=== PATIENT | female | born 1995 ===

== ENCOUNTER 2017-03-17 11:50 | Emergency (ER) | payer BC ==
[2017-03-17 12:26] VITALS: BP 112/62; PULSE 97; RESP 18; TEMP 98.6
--- NOTE | 2017-03-17 12:47 | ED ---
General Adult HPI - General Chief complaint: ENT Stated complaint: cough, fever Time Seen by Provider: 03/17/17 12:29 Source: patient, RN notes reviewed Mode of arrival: ambulatory Limitations: language barrier - History of Present Illness Initial comments: 21-year-old female presents for cough cold runny nose like symptoms. She's been started to get sick for the last day or so. Child. She denies any fever. There's been no nausea vomiting changes in eating or drinking. They were concerned due to the continued starting to feel bad with his history of ear infections so they thought that they should be seen. There is been no other symptoms in the patient. No significant health history.Patient denies any recent fever, chills, shortness of breath, chest pain, back pain, abdominal pain , nausea vomiting, numbness or tingling, dysuria or hematuria, constipation or diarrhea, headaches or visual changes, or any other current symptoms. - Related Data Allergies Allergy/AdvReac Type Severity Reaction Status Date / Time No Known Allergies Allergy Verified 03/17/17 12:25 Review of Systems ROS Statement: Those systems with pertinent positive or pertinent negative responses have been documented in the HPI. ROS Other: All systems not noted in ROS Statement are negative. Past Medical History Past Medical History: No Reported History History of Any Multi-Drug Resistant Organisms: None Reported Past Surgical History: No Surgical Hx Reported Past Psychological History: No Psychological Hx Reported Smoking Status: Never smoker Past Alcohol Use History: None Reported Past Drug Use History: None Reported General Exam - General Exam Comments Initial Comments: General exam: Alert, active, comfortable in no apparent distress Head: Normocephalic Eyes: Normal reaction of pupils, equal size, normal range of extraocular motion Ears: normal external ear canals, pink tympanic membranes with normal cone of light Nose: clear with pink turbinates Throat: no erythema or exudates with normal sized tonsils Neck: no masses, no nuchal rigidity Chest: no chest wall deformity Lungs: equal air entry with no crackles or wheeze CVS: S1 and S2 normal with no audible mumurs, regular rhythm Abdomen: no hepatosplenomegaly, normal bowel sounds, no guarding or rigidity Spine: no scoliosis or deformity Skin: no rashes Neurological: No focal deficits, tone is normal in all 4 extremities Limitations: language barrier Course Vital Signs 03/17/17 12:23 Temperature 98.6 F Pulse Rate 97 Respiratory 18 Rate Blood Pressure 112/62 O2 Sat by Pulse 99 Oximetry Medical Decision Making - Medical Decision Making General exam: Alert, active, comfortable in no apparent distress Head: Normocephalic Eyes: Normal reaction of pupils, equal size, normal range of extraocular motion Ears: normal external ear canals, pink tympanic membranes with normal cone of light Nose: clear with pink turbinates Throat: no erythema or exudates with normal sized tonsils Neck: no masses, no nuchal rigidity Chest: no chest wall deformity Lungs: equal air entry with no crackles or wheeze CVS: S1 and S2 normal with no audible mumurs, regular rhythm Spine: no scoliosis or deformity Skin: no rashes Neurological: No focal deficits, tone is normal in all 4 extremities Disposition Clinical Impression: Upper respiratory infection Disposition: HOME SELF-CARE Condition: Stable Instructions: Upper Respiratory Infection (ED) Additional Instructions: Please use medication as discussed. Please follow up with family doctor if symptoms have not improved over the next two days. Please return to the emergency room if your symptoms increase or worsen or for any other concerns. Referrals: Ashleigh Rivero MD [STAFF PHYSICIAN] - 1-2 days Time of Disposition: 12:47
== END 2017-03-17 12:49 | disposition home or self-care (01) ==
LOC: EC 11:50
DX: J06.9 Acute upper respiratory infection, unspecified (principal)
CPT/HCPCS: 99283

== ENCOUNTER 2017-09-16 23:30 | Emergency (ER) | payer BC, OTHER ==
[2017-09-16 23:52] VITALS: RESP 18
[2017-09-17] MEDS ORDERED: SODIUM CHLORIDE 0.9% 1,000 ML IV STA (00:23)
--- NOTE | 2017-09-17 00:26 | ED ---
Syncope HPI - General Chief Complaint: Syncope Stated Complaint: syncope, 17 weeks preg Time Seen by Provider: 09/17/17 00:19 Source: patient, family, RN notes reviewed Mode of arrival: ambulatory Limitations: language barrier - History of Present Illness Initial Comments: This is a 22-year-old female who presents to the emergency department with chief complaint of syncope. Patient is currently 17 weeks . Patient knows very little Maltese so [id number] translates. She states that at approximately 11 PM this evening patient passed out. She states that she lost consciousness for a couple of seconds. At this time, patient reports feeling lightheaded. She states that she has never passed out before. Denies any recent fevers, chills, chest pain or shortness of breath, abdominal pain, nausea or vomiting, vaginal bleeding, headache or vision changes. - Related Data Allergies Allergy/AdvReac Type Severity Reaction Status Date / Time No Known Allergies Allergy Verified 09/16/17 23:52 Review of Systems ROS Statement: Those systems with pertinent positive or pertinent negative responses have been documented in the HPI. ROS Other: All systems not noted in ROS Statement are negative. Past Medical History Past Medical History: No Reported History History of Any Multi-Drug Resistant Organisms: None Reported Past Surgical History: No Surgical Hx Reported Past Psychological History: No Psychological Hx Reported Smoking Status: Never smoker Past Alcohol Use History: None Reported Past Drug Use History: None Reported General Exam - General Exam Comments Initial Comments: General: Awake and alert, well-developed; in no apparent distress. HEENT: Head atraumatic, normocephalic. Pupils are equal, round and reactive to light. Extraocular movements intact. Oropharynx moist without erythema or exudate. Neck: Supple. Normal ROM. Cardiovascular: Regular rate and rhythm. No murmurs, rubs or gallops. Chest symmetrical. Respiratory: Lungs clear to auscultation bilaterally. No wheezes, rales or rhonchi. Normal respiratory effort with no use of accessory muscles. Abdomen: Soft, non-tender, non-distended. No rigidity, rebound or guarding. Musculoskeletal: Normal ROM, no tenderness bilateral upper and lower extremities. Ambulating normally. Skin: [place], warm and dry without rashes or lesions. Neurological: Alert and oriented x3. CN II-XII grossly intact. No focal neuro deficits. Limitations: language barrier Course Vital Signs 07/11/2609/17/17 09/17/17 23:49 02:30 02:52 Temperature 98.3 F Pulse Rate 83 84 Respiratory 18 18 Rate Blood Pressure 92/56 89/53 98/53 O2 Sat by Pulse 99 98 Oximetry 09/17/17 09/17/17 09/17/17 03:35 03:39 03:43 Temperature 97 F L Pulse Rate 88 75 Respiratory 18 18 Rate Blood Pressure 95/59 98/57 O2 Sat by Pulse 98 100 Oximetry - Reevaluation(s) Reevaluation #1: 09/17/17 03:03 Patient resting comfortably at this time. Lab results were discussed with patient and family members at bedside who did provide translation. Patient continues to have low blood pressure. Awaiting second liter bolus at this time. EKG Findings - EKG Comments: EKG Findings:: 1:08:06. Normal sinus rhythm. Ventricular rate 75 bpm, NC interval 114, QRS duration 84, QT/QTC 376/419. No evidence of ST segment elevation or depression. Medical Decision Making - Medical Decision Making This is a 22-year-old female, currently 17 weeks , who presents to the emergency department with chief complaint of syncopal episode. Prior to arrival , it was reported the patient passed out for a couple of seconds. On physical examination, patient appears well. EKG was obtained which revealed normal sinus rhythm. CBC, CMP and UA were unremarkable. Ultrasound was obtained which revealed a viable intrauterine with no complicating processes. The only remote abnormality was a slightly lower blood pressure. Patient was given 2 L of normal saline while in the emergency department. She states that her symptoms have improved. Vital signs are stable and patient is in no acute distress. She will be discharged home at this time. Recommended following up with her primary care provider as well as her PERSONNEL WORKER. Patient is in agreement. All questions answered. Case was discussed with attending physician, Dr. Olivarez. - Lab Data Result diagrams: 09/17/17 00:39 09/17/17 00:39 Lab Results 09/17/17 09/17/17 09/17/17 Range/Units 00:39 00:39 00:39 WBC 9.0 (3.8-10.6) k/uL RBC 4.02 (3.80-5.40) m/uL Hgb 12.8 (11.4-16.0) gm/dL Hct 35.8 (34.0-46.0) % MCV 89.1 (80.0-100.0) fL MCH 31.8 (25.0-35.0) pg MCHC 35.7 (31.0-37.0) g/dL RDW 13.6 (11.5-15.5) % Plt Count 161 (150-450) k/uL Neutrophils % 78 % Lymphocytes % 16 % Monocytes % 4 % Eosinophils % 2 % Basophils % 0 % Neutrophils # 6.9 (1.3-7.7) k/uL Lymphocytes # 1.4 (1.0-4.8) k/uL Monocytes # 0.3 (0-1.0) k/uL Eosinophils # 0.2 (0-0.7) k/uL Basophils # 0.0 (0-0.2) k/uL PT 9.8 (9.0-12.0) sec INR 1.0 (<1.2) APTT 21.2 L (22.0-30.0) sec Sodium 136 L (137-145) mmol/L Potassium 3.7 (3.5-5.1) mmol/L Chloride 104 (98-107) mmol/L Carbon Dioxide 23 (22-30) mmol/L Anion Gap 9 mmol/L BUN 9 (7-17) mg/dL Creatinine 0.40 L (0.52-1.04) mg/dL Est GFR (CKD-EPI)AfAm >90 (>60 ml/min/1.73 sqM) Est GFR (CKD-EPI)NonAf >90 (>60 ml/min/1.73 sqM) Glucose 94 (74-99) mg/dL Calcium 8.7 (8.4-10.2) mg/dL Total Bilirubin 1.1 (0.2-1.3) mg/dL AST 21 (14-36) U/L ALT 24 (9-52) U/L Alkaline Phosphatase 35 L (38-126) U/L Total Protein 6.0 L (6.3-8.2) g/dL Albumin 3.4 L (3.5-5.0) g/dL Urine Color Urine Appearance (Clear) Urine pH (5.0-8.0) Ur Specific [place] (1.001-1.035) Urine Protein (Negative) Urine Glucose (UA) (Negative) Urine Ketones (Negative) Urine Blood (Negative) Urine Nitrite (Negative) Urine Bilirubin (Negative) Urine Urobilinogen (<2.0) mg/dL Ur Leukocyte Esterase (Negative) 09/17/17 Range/Units 01:50 WBC (3.8-10.6) k/uL RBC (3.80-5.40) m/uL Hgb (11.4-16.0) gm/dL Hct (34.0-46.0) % MCV (80.0-100.0) fL MCH (25.0-35.0) pg MCHC (31.0-37.0) g/dL RDW (11.5-15.5) % Plt Count (150-450) k/uL Neutrophils % % Lymphocytes % % Monocytes % % Eosinophils % % Basophils % % Neutrophils # (1.3-7.7) k/uL Lymphocytes # (1.0-4.8) k/uL Monocytes # (0-1.0) k/uL Eosinophils # (0-0.7) k/uL Basophils # (0-0.2) k/uL PT (9.0-12.0) sec INR (<1.2) APTT (22.0-30.0) sec Sodium (137-145) mmol/L Potassium (3.5-5.1) mmol/L Chloride (98-107) mmol/L Carbon Dioxide (22-30) mmol/L Anion Gap mmol/L BUN (7-17) mg/dL Creatinine (0.52-1.04) mg/dL Est GFR (CKD-EPI)AfAm (>60 ml/min/1.73 sqM) Est GFR (CKD-EPI)NonAf (>60 ml/min/1.73 sqM) Glucose (74-99) mg/dL Calcium (8.4-10.2) mg/dL Total Bilirubin (0.2-1.3) mg/dL AST (14-36) U/L ALT (9-52) U/L Alkaline Phosphatase (38-126) U/L Total Protein (6.3-8.2) g/dL Albumin (3.5-5.0) g/dL Urine Color Light Yellow Urine Appearance Clear (Clear) Urine pH 6.0 (5.0-8.0) Ur Specific [place] 1.007 (1.001-1.035) Urine Protein Negative (Negative) Urine Glucose (UA) Negative (Negative) Urine Ketones Negative (Negative) Urine Blood Negative (Negative) Urine Nitrite Negative (Negative) Urine Bilirubin Negative (Negative) Urine Urobilinogen <2.0 (<2.0) mg/dL Ur Leukocyte Esterase Negative (Negative) - Radiology Data Radiology results: report reviewed Obstetrical ultrasound impression: viable IUP at 17 weeks 2 days heart rate 146 bpm. Amniotic fluid appears adequate. No complicating process seen. Disposition Clinical Impression: Syncope Disposition: HOME SELF-CARE Condition: Good Instructions: Syncope (ED) Additional Instructions: Please follow-up with your PERSONNEL WORKER within 1-2 days. Please follow up with primary care provider within 1-2 days. Return to emergency department if symptoms should worsen or any concerns arise. Is patient prescribed a controlled substance at d/c from ED?: No Referrals: None,Stated [Primary Care Provider] - 1-2 days Time of Disposition: 03:37
[2017-09-17 00:44] LABS: Basophils % (A) 0 %; Eosinophils # (A) 0.2 k/uL (0-0.7); Eosinophils % (A) 2 %; HCT 35.8 % (34.0-46.0); HGB 12.8 gm/dL (11.4-16.0); Lymphocytes # (A) 1.4 k/uL (1.0-4.8); Lymphocytes % (A) 16 %; MCH 31.8 pg (25.0-35.0); MCHC 35.7 g/dL (31.0-37.0); MCV 89.1 fL (80.0-100.0); Mean Platelet Volume 6.8; Monocytes # (A) 0.3 k/uL (0-1.0); Monocytes % (A) 4 %; Neutrophils # (A) 6.9 k/uL (1.3-7.7); Neutrophils % (A) 78 %; Platelet Count 161 k/uL (150-450); RBC 4.02 m/uL (3.80-5.40); RDW 13.6 % (11.5-15.5)
[2017-09-17 00:56] LABS: ALT 24 U/L (9-52); AST 21 U/L (14-36); Albumin 3.4 g/dL (3.5-5.0); Alkaline Phosphatase 35 U/L (38-126); Anion Gap 9 mmol/L; Blood Urea Nitrogen 9 mg/dL (7-17); Calcium 8.7 mg/dL (8.4-10.2); Carbon Dioxide 23 mmol/L (22-30); Chloride 104 mmol/L (98-107); Glucose 94 mg/dL (74-99); Potassium 3.7 mmol/L (3.5-5.1); Sodium 136 mmol/L (137-145); Total Bilirubin 1.1 mg/dL (0.2-1.3)
[2017-09-17 01:03] LABS: Prothrombin Time 9.8 sec (9.0-12.0)
[2017-09-17 01:04] LABS: Partial Thromboplastin Time 21.2 sec (22.0-30.0)
--- NOTE | 2017-09-17 01:19 | US ---
EXAMINATION TYPE: US OB >= 14 wk fetus DATE OF EXAM: 09/17/2017 COMPARISON: None CLINICAL HISTORY: syncopeSyncope TECHNIQUE: Transabdominal (TA) GESTATIONAL AGE / DATING Physician Established: (17 weeks/3 days) EDC: 02/22/2018 Dates by LMP: (17 weeks/3 days) EDC: 02/22/2018 Dates by First Scan: No previous this is first scan Dates by Current Scan: (17 weeks/2 days) EDC: 02/23/2018 Beta HCG (if available): Not available at this time SURVEY IUP: Single PLACENTA: Anterior PREVIA: No Previa TRISTON: 12.9 cm Normal CERVICAL LENGTH (transabdominal: norm > 3.0cm): 3.2 cm BIOMETRY PRESENTATION: Variable BPD: 3.7 cm 17 weeks / 2 days HC: 13.3 cm 16 weeks / 6 days AC: 12.3 cm 18 weeks / 0 days FL: 2.3 cm 17 weeks / 0 days ESTIMATED WEIGHT IN GRAMS: 194.74 grams ESTIMATED WEIGHT IN LBS/OZ: 0 lbs. 7 oz. WEIGHT PERCENTAGE BASED ON ESTABLISHED DATES: 44.6% HC/AC: 1.08 cm Normal FL/AC: 63.18 cm Normal HEART RATE: 146 bpm RHYTHM: Normal Viable IUP 17w 2d NTIO 02/23/2018 HR 146 BPM IMPRESSION: Amniotic fluid appears adequate. No complicating process seen.
[2017-09-17 02:07] LABS: Appearance,Urine Clear (Clear); Bilirubin,Urine Negative (Negative); Blood,Urine Negative (Negative); Color,Urine Light Yellow; Glucose,Urine (UA) Negative (Negative); Ketones,Urine Negative (Negative); Leukocyte Esterase,Urine Negative (Negative); Nitrite,Urine Negative (Negative); Protein,Urine Negative (Negative); Specific Gravity,Urine 1.007 (1.001-1.035); Urobilinogen,Urine <2.0 mg/dL (<2.0)
[2017-09-17] MEDS ORDERED: SODIUM CHLORIDE 0.9% 1,000 ML IV ONE (02:40)
[2017-09-17 03:45] VITALS: BP 98/57; PULSE 75; TEMP 97
== END 2017-09-17 03:43 | disposition home or self-care (01) ==
LOC: EC 23:30
DX: O99.89 Other specified diseases and conditions complicating pregnancy, childbirth and the puerperium (principal); R55 Syncope and collapse; R03.1 Nonspecific low blood-pressure reading; Z3A.17 17 weeks gestation of pregnancy
CPT/HCPCS: 36415; 76805; 80053; 81003; 85025; 85610; 85730; 93005; 96360; 96361; 99284

== ENCOUNTER 2021-12-31 12:52 | Observation (INO) | payer OTHER ==
--- NOTE | 2021-12-31 13:20 | XR ---
EXAMINATION TYPE: XR chest 2V DATE OF EXAM: 12/31/2021 COMPARISON: NONE HISTORY: Chest and right-sided rib pain. TECHNIQUE: Frontal and lateral views of the chest are obtained. FINDINGS: There is no focal air space opacity, pleural effusion, or pneumothorax seen. The cardiac silhouette size is within normal limits. The osseous structures are intact. IMPRESSION: No acute process.
[2021-12-31] MEDS ORDERED: SODIUM CHLORIDE 0.9% 500 ML 500 ML IV STA (13:50)
--- NOTE | 2021-12-31 14:02 | ED ---
General Adult HPI - General Chief complaint: Recheck/Abnormal Lab/Rx Stated complaint: rt sided rib pain Time Seen by Provider: 12/31/21 13:40 Source: patient, RN notes reviewed, old records reviewed Mode of arrival: ambulatory Limitations: no limitations - History of Present Illness Initial comments: This is a 26-year-old female presents emergency Department complaining of right upper quadrant abdominal pain for the last few days. Patient states sometimes she feels some pain in the back as well. Patient denies any vomiting or diarrhea. Patient's any chest pain difficulty breathing first breath per patient denies any injury or trauma. Patient denies any similar symptoms in the past. Patient denies any fever chills. - Related Data Allergies Allergy/AdvReac Type Severity Reaction Status Date / Time No Known Allergies Allergy Verified 12/31/21 13:04 Review of Systems ROS Statement: Those systems with pertinent positive or pertinent negative responses have been documented in the HPI. ROS Other: All systems not noted in ROS Statement are negative. Past Medical History Past Medical History: No Reported History History of Any Multi-Drug Resistant Organisms: None Reported Past Surgical History: No Surgical Hx Reported Past Psychological History: No Psychological Hx Reported Smoking Status: Never smoker Past Alcohol Use History: None Reported Past Drug Use History: None Reported General Exam - General Exam Comments Initial Comments: GENERAL: Patient is well-developed and well-nourished. Patient is nontoxic and well- hydrated and is in mild distress. ENT: Neck is soft and supple. No significant lymphadenopathy is noted. Oropharynx is clear. Moist mucous membranes. Neck has full range of motion without eliciting any pain. EYES: The sclera were anicteric and conjunctiva were pink and moist. Extraocular movements were intact and pupils were equal round and reactive to light. Eyelids were unremarkable. PULMONARY: Unlabored respirations. Good breath sounds bilaterally. No audible rales rhonchi or wheezing was noted. CARDIOVASCULAR: There is a regular rate and rhythm without any murmurs gallops or rubs. Patient has no rib tenderness ABDOMEN: Patient has right upper quadrant abdominal pain SKIN: Skin is clear with no lesions or rashes and otherwise unremarkable. NEUROLOGIC: Patient is alert and oriented x3. Cranial nerves II through XII are grossly intact. Motor and sensory are also intact. Normal speech, volume and content. Symmetrical smile. MUSCULOSKELETAL: Normal extremities with adequate strength and full range of motion. LYMPHATICS: No significant lymphadenopathy is noted PSYCHIATRIC: Normal psychiatric evaluation. Limitations: no limitations Course Vital Signs 12/31/21 13:03 Temperature 97.8 F Pulse Rate 90 Respiratory 20 Rate Blood Pressure 116/66 O2 Sat by Pulse 100 Oximetry Medical Decision Making - Medical Decision Making Ultrasound showed a 0.9 cm stone in the gallbladder with some biliary sludge. Patient's bilirubin was elevated at 2.6 and was repeated went down to 2.0. I spoke with Dr. Diallo she agreed to admit the patient admitted the patient wrote admitting orders. - Lab Data Result diagrams: 12/31/21 14:03 12/31/21 15:39 Lab Results 12/31/21 12/31/21 12/31/21 Range/Units 14:03 14:03 14:03 WBC 8.0 (3.8-10.6) k/uL RBC 4.21 (3.80-5.40) m/uL Hgb 13.2 (11.4-16.0) gm/dL Hct 36.4 (34.0-46.0) % MCV 86.4 (80.0-100.0) fL MCH 31.2 (25.0-35.0) pg MCHC 36.1 (31.0-37.0) g/dL RDW 12.3 (11.5-15.5) % Plt Count 138 L (150-450) k/uL MPV 8.2 Neutrophils % 62 % Lymphocytes % 28 % Monocytes % 6 % Eosinophils % 3 % Basophils % 0 % Neutrophils # 4.9 (1.3-7.7) k/uL Lymphocytes # 2.3 (1.0-4.8) k/uL Monocytes # 0.4 (0-1.0) k/uL Eosinophils # 0.3 (0-0.7) k/uL Basophils # 0.0 (0-0.2) k/uL Sodium 137 (137-145) mmol/L Potassium 4.1 (3.5-5.1) mmol/L Chloride 106 (98-107) mmol/L Carbon Dioxide 22 (22-30) mmol/L Anion Gap 9 mmol/L BUN 10 (7-17) mg/dL Creatinine 0.54 (0.52-1.04) mg/dL Est GFR (CKD-EPI)AfAm >90 (>60 ml/min/1.73 sqM) Est GFR (CKD-EPI)NonAf >90 (>60 ml/min/1.73 sqM) Glucose 84 (74-99) mg/dL Plasma Lactic Acid Jae 0.9 (0.7-2.0) mmol/L Calcium 8.6 (8.4-10.2) mg/dL Total Bilirubin 2.6 H (0.2-1.3) mg/dL AST 32 (14-36) U/L ALT 19 (4-34) U/L Alkaline Phosphatase 32 L (38-126) U/L Total Protein 7.4 (6.3-8.2) g/dL Albumin 4.7 (3.5-5.0) g/dL Amylase 63 (30-110) U/L Lipase 65 (23-300) U/L 12/31/21 Range/Units 15:39 WBC (3.8-10.6) k/uL RBC (3.80-5.40) m/uL Hgb (11.4-16.0) gm/dL Hct (34.0-46.0) % MCV (80.0-100.0) fL MCH (25.0-35.0) pg MCHC (31.0-37.0) g/dL RDW (11.5-15.5) % Plt Count (150-450) k/uL MPV Neutrophils % % Lymphocytes % % Monocytes % % Eosinophils % % Basophils % % Neutrophils # (1.3-7.7) k/uL Lymphocytes # (1.0-4.8) k/uL Monocytes # (0-1.0) k/uL Eosinophils # (0-0.7) k/uL Basophils # (0-0.2) k/uL Sodium 138 (137-145) mmol/L Potassium 3.9 (3.5-5.1) mmol/L Chloride 108 H (98-107) mmol/L Carbon Dioxide 21 L (22-30) mmol/L Anion Gap 9 mmol/L BUN 9 (7-17) mg/dL Creatinine 0.53 (0.52-1.04) mg/dL Est GFR (CKD-EPI)AfAm >90 (>60 ml/min/1.73 sqM) Est GFR (CKD-EPI)NonAf >90 (>60 ml/min/1.73 sqM) Glucose 80 (74-99) mg/dL Plasma Lactic Acid Jae (0.7-2.0) mmol/L Calcium 8.1 L (8.4-10.2) mg/dL Total Bilirubin 2.0 H (0.2-1.3) mg/dL AST 18 (14-36) U/L ALT 16 (4-34) U/L Alkaline Phosphatase 27 L (38-126) U/L Total Protein 6.2 L (6.3-8.2) g/dL Albumin 3.9 (3.5-5.0) g/dL Amylase (30-110) U/L Lipase (23-300) U/L Disposition Clinical Impression: Symptomatic cholelithiasis Disposition: ADMITTED IP TO THIS HOSP Referrals: None,Stated [Primary Care Provider] - 1-2 days Time of Disposition: 16:17
[2021-12-31 14:15] LABS: Basophils % (A) 0 %; Eosinophils # (A) 0.3 k/uL (0-0.7); Eosinophils % (A) 3 %; HCT 36.4 % (34.0-46.0); HGB 13.2 gm/dL (11.4-16.0); Lymphocytes # (A) 2.3 k/uL (1.0-4.8); Lymphocytes % (A) 28 %; MCH 31.2 pg (25.0-35.0); MCHC 36.1 g/dL (31.0-37.0); MCV 86.4 fL (80.0-100.0); Mean Platelet Volume 8.2; Monocytes # (A) 0.4 k/uL (0-1.0); Monocytes % (A) 6 %; Neutrophils # (A) 4.9 k/uL (1.3-7.7); Neutrophils % (A) 62 %; Platelet Count 138 k/uL (150-450); RBC 4.21 m/uL (3.80-5.40); RDW 12.3 % (11.5-15.5)
[2021-12-31 14:25] LABS: ALT 19 U/L (4-34); African American GFR (CKD) >90 (>60 ml/min/1.73 sqM); Amylase 63 U/L (30-110); Anion Gap 9 mmol/L; Blood Urea Nitrogen 10 mg/dL (7-17); Calcium 8.6 mg/dL (8.4-10.2); Carbon Dioxide 22 mmol/L (22-30); Chloride 106 mmol/L (98-107); Glucose 84 mg/dL (74-99); Lipase 65 U/L (23-300); Non-African American GFR(CKD) >90 (>60 ml/min/1.73 sqM); Sodium 137 mmol/L (137-145)
[2021-12-31 14:26] LABS: Potassium 4.1 mmol/L (3.5-5.1)
[2021-12-31 14:27] LABS: AST 32 U/L (14-36); Albumin 4.7 g/dL (3.5-5.0); Alkaline Phosphatase 32 U/L (38-126); Total Bilirubin 2.6 mg/dL (0.2-1.3); Total Protein 7.4 g/dL (6.3-8.2)
--- NOTE | 2021-12-31 15:21 | US ---
EXAMINATION TYPE: US gallbladder DATE OF EXAM: 12/31/2021 COMPARISON: NONE CLINICAL HISTORY: Right upper quadrant abdominal pain. RUQ pain TECHNIQUE: Multiple sonographic images of the right upper quadrant are obtained. FINDINGS: EXAM MEASUREMENTS: Liver Length: 16.1 cm Gallbladder Wall: 0.2 cm CBD: 0.4 cm Right Kidney: 10.5 x 4.2 x 5.2 cm Pancreas: wnl Liver: wnl Gallbladder: borderline hydropic, sludge, 0.9cm stone Evidence for sonographic Sanchez's sign: yes CBD: wnl Right Kidney: wnl IMPRESSION: There is echogenic bile and single gallstone. No dilated ducts.
[2021-12-31 16:04] LABS: ALT 16 U/L (4-34); AST 18 U/L (14-36); African American GFR (CKD) >90 (>60 ml/min/1.73 sqM); Albumin 3.9 g/dL (3.5-5.0); Alkaline Phosphatase 27 U/L (38-126); Anion Gap 9 mmol/L; Blood Urea Nitrogen 9 mg/dL (7-17); Calcium 8.1 mg/dL (8.4-10.2); Carbon Dioxide 21 mmol/L (22-30); Chloride 108 mmol/L (98-107); Glucose 80 mg/dL (74-99); Non-African American GFR(CKD) >90 (>60 ml/min/1.73 sqM); Potassium 3.9 mmol/L (3.5-5.1); Sodium 138 mmol/L (137-145); Total Protein 6.2 g/dL (6.3-8.2)
[2021-12-31] MEDS ORDERED: HYDROmorphone 0.5 MG/0.5 ML SYRINGE IVP PRN (16:16)
[2021-12-31] MEDS ORDERED: ACETAMINOPHEN TAB 325 MG TAB PO PRN (16:16)
[2021-12-31] MEDS ORDERED: ONDANSETRON 4 MG/2 ML VIAL IVP PRN (16:17)
[2021-12-31] MEDS ORDERED: SCOPOLAMINE 1 MG/72 HR PATCH TRANSDERM STA (16:18)
[2021-12-31] MEDS ORDERED: SODIUM CHLORIDE 0.9% 1,000 ML IV ONE (16:18)
[2021-12-31] MEDS: KETOROLAC 15 MG/ML 1 ML VIAL IVP SCH (17:06)
[2021-12-31] MEDS: HEPARIN SODIUM,PORCINE/PF 5,000 UNIT/0.5 ML SYRINGE SQ SCH (20:16)
[2022-01-01] MEDS: KETOROLAC 15 MG/ML 1 ML VIAL IVP SCH ×4 (02:22→17:07)
[2022-01-01 07:42] LABS: Basophils % (A) 1 %; Eosinophils # (A) 0.2 k/uL (0-0.7); Eosinophils % (A) 4 %; HCT 35.4 % (34.0-46.0); HGB 12.5 gm/dL (11.4-16.0); Lymphocytes # (A) 1.9 k/uL (1.0-4.8); Lymphocytes % (A) 40 %; MCH 31.5 pg (25.0-35.0); MCHC 35.2 g/dL (31.0-37.0); MCV 89.6 fL (80.0-100.0); Mean Platelet Volume 8.4; Monocytes # (A) 0.3 k/uL (0-1.0); Monocytes % (A) 6 %; Neutrophils # (A) 2.3 k/uL (1.3-7.7); Neutrophils % (A) 49 %; Platelet Count 143 k/uL (150-450); RBC 3.95 m/uL (3.80-5.40); RDW 12.4 % (11.5-15.5); WBC 4.7 k/uL (3.8-10.6)
[2022-01-01 07:50] LABS: ALT 15 U/L (4-34); AST 16 U/L (14-36); African American GFR (CKD) >90 (>60 ml/min/1.73 sqM); Albumin 3.7 g/dL (3.5-5.0); Albumin/Globulin Ratio 1.7; Alkaline Phosphatase 24 U/L (38-126); Anion Gap 8 mmol/L; Blood Urea Nitrogen 8 mg/dL (7-17); Calcium 7.9 mg/dL (8.4-10.2); Carbon Dioxide 23 mmol/L (22-30); Chloride 108 mmol/L (98-107); Globulin 2.2 g/dL; Glucose 77 mg/dL (74-99); Non-African American GFR(CKD) >90 (>60 ml/min/1.73 sqM); Potassium 4.6 mmol/L (3.5-5.1); Sodium 139 mmol/L (137-145); Total Protein 5.9 g/dL (6.3-8.2)
[2022-01-01] MEDS: HEPARIN SODIUM,PORCINE/PF 5,000 UNIT/0.5 ML SYRINGE SQ SCH (07:50)
[2022-01-01 08:29] VITALS: RESP 14
[2022-01-01] MEDS ORDERED: PANTOPRAZOLE 40 MG/10 ML VIAL IV SCH (09:00)
[2022-01-01] MEDS: PIPERACILLIN-TAZOBACTAM 3.375 GM in SODIUM CHLORIDE 0.9% 100 ML IVPB SCH ×2 (09:06→17:06)
[2022-01-01 09:15] LABS: Bilirubin,Unconjugated 2.8 mg/dL (0.0-1.1)
[2022-01-01] MEDS ORDERED: LORazepam 1 MG/0.5 ML VIAL IV STA (09:16)
--- NOTE | 2022-01-01 10:44 | P.GSHP ---
History of Present Illness H&P Date: 01/01/22 CHIEF COMPLAINT: Right upper quadrant abdominal pain HISTORY OF PRESENT ILLNESS: This is a 26-year-old female presented with right upper quadrant abdominal pain for the last 2 days. Patient denies any nausea or vomiting. She does report that the pain got into her back. She states that the pain has shown improvement since admission. She denies any fever chills or sweats. Patient's abdominal ultrasound had shown bile in the single gallstone. No dilated ducts. She did have elevated total bilirubin and alk phos. Patient denies any cardiac history. Denies any prior abdominal surgical history. PAST MEDICAL HISTORY: See list. PAST SURGICAL HISTORY: See list. MEDICATIONS: See list. ALLERGIES: See list. SOCIAL HISTORY: No illicit drug use. REVIEW OF SYSTEMS: CONSTITUTIONAL: Denies fever or chills. HEENT: Denies blurred vision, vision changes, or eye pain. Denies hemoptysis ENDOCRINE: Denies heat or cold intolerance. CARDIOVASCULAR: Denies chest pain or pressure. RESPIRATORY: No shortness of breath. GASTROINTESTINAL: Please refer to HPI otherwise unremarkable NEURO: Denies history of seizures. PSYCH: No depression or suicidal ideation HEMATOLOGIC: Denies bleeding disorders. LYMPHATIC: The patient denies any lumps and bumps around the neck. GENITOURINARY: Denies any blood in urine or increased urinary frequency. MUSCULOSKELETAL: Denies myalgias. Denies joint swelling. Denies decreased range of motion beyond patients baseline. SKIN: Denies pruitis. Denies rash. PHYSICAL EXAM: VITAL SIGNS: Reviewed GENERAL: Well-developed in no acute distress. HEENT: No sclera icterus. Extraocular movements grossly intact. Moist buccal mucosa. Head is atraumatic, normocephalic. Hears conversational speech. No nasal drainage. NECK: Supple without lymphadenopathy. CHEST: Non-labored respirations and equal bilateral excursions. CARDIOVASCULAR: Palpable 2+ radial pulses. ABDOMEN: Soft. Nondistended. Tenderness to palpation right upper quadrant MUSCULOSKELETAL: No clubbing or cyanosis. NEUROLOGIC: No focal or lateralizing signs. Cranial nerves II through XII grossly intact. PSYCH: Appropriate affect. Alert and oriented to person, place and time. SKIN: Well perfused. Good skin turgor. LABORATORY DATA: WBC is 4.7 Hgb 12.5 platelets 143 Sodium is 139 potassium 4.6 chloride 108 BUN 8 creatinine 0.58 Lactic acid 0.9 Total bilirubin 2.6 up to 3.0 AST 16 ALT 15 alk phos 24 Lipase 65 Urine hCG not detected IMAGING: Gallbladder ultrasound bile and single gallstone. Borderline hydropic gallbladder and sludge. Positive Sanchez sign. No dilated ducts. ASSESSMENT: 1. Right upper quadrant abdominal pain with concern for possible choledocholit hiasis with elevated total bilirubin 2. Cholelithiasis with borderline hydropic gallbladder and sludge with positive Sanchez sign noted on abdominal ultrasound PLAN: -MRCP ordered for further evaluation for possible choledocholithiasis -Further recommendations forthcoming per surgeon regarding robotic cholecystectomy -Continue IV antibiotics -Continue IV fluids -Continue supportive care Physician Agricultural Aircraft Pilot note has been reviewed by physician. Signing provider agrees with the documented findings, assessment, and plan of care. Past Medical History Past Medical History: No Reported History History of Any Multi-Drug Resistant Organisms: None Reported Past Surgical History: No Surgical Hx Reported Past Anesthesia/Blood Transfusion Reactions: No Reported Reaction Past Psychological History: No Psychological Hx Reported Smoking Status: Never smoker Past Alcohol Use History: None Reported Past Drug Use History: None Reported - Past Family History Father Family Medical History: No Reported History Mother Family Medical History: No Reported History Medications and Allergies Home Medications Medication Instructions Recorded Confirmed Type No Known Home Medications 12/31/21 12/31/21 History Allergies Allergy/AdvReac Type Severity Reaction Status Date / Time No Known Allergies Allergy Verified 12/31/21 16:28 Surgical - Exam Vital Signs Temp Pulse Resp BP Pulse Ox 97.8 F 90 20 116/66 100 12/31/21 13:03 12/31/21 13:03 12/31/21 13:03 12/31/21 13:03 12/31/21 13:03 Results - Labs 01/01/22 06:27 01/01/22 06:27 Abnormal Lab Results - Last 24 Hours (Table) 12/31/21 12/31/21 12/31/21 Range/Units 14:03 14:03 15:39 Plt Count 138 L (150-450) k/uL Chloride 108 H (98-107) mmol/L Carbon Dioxide 21 L (22-30) mmol/L Calcium 8.1 L (8.4-10.2) mg/dL Total Bilirubin 2.6 H 2.0 H (0.2-1.3) mg/dL Unconjugated Bilirubin (0.0-1.1) mg/dL Alkaline Phosphatase 32 L 27 L (38-126) U/L Total Protein 6.2 L (6.3-8.2) g/dL 01/01/22 01/01/22 Range/Units 06:27 06:27 Plt Count 143 L (150-450) k/uL Chloride 108 H (98-107) mmol/L Carbon Dioxide (22-30) mmol/L Calcium 7.9 L (8.4-10.2) mg/dL Total Bilirubin 3.0 H (0.2-1.3) mg/dL Unconjugated Bilirubin 2.8 H (0.0-1.1) mg/dL Alkaline Phosphatase 24 L (38-126) U/L Total Protein 5.9 L (6.3-8.2) g/dL Diabetes panel 12/31/21 12/31/21 01/01/22 Range/Units 14:03 15:39 06:27 Sodium 137 138 139 (137-145) mmol/L Potassium 4.1 3.9 4.6 (3.5-5.1) mmol/L Chloride 106 108 H 108 H (98-107) mmol/L Carbon Dioxide 22 21 L 23 (22-30) mmol/L BUN 10 9 8 (7-17) mg/dL Creatinine 0.54 0.53 0.58 (0.52-1.04) mg/dL Glucose 84 80 77 (74-99) mg/dL Calcium 8.6 8.1 L 7.9 L (8.4-10.2) mg/dL AST 32 18 16 (14-36) U/L ALT 19 16 15 (4-34) U/L Alkaline Phosphatase 32 L 27 L 24 L (38-126) U/L Total Protein 7.4 6.2 L 5.9 L (6.3-8.2) g/dL Albumin 4.7 3.9 3.7 (3.5-5.0) g/dL Calcium panel 12/31/21 12/31/21 01/01/22 Range/Units 14:03 15:39 06:27 Calcium 8.6 8.1 L 7.9 L (8.4-10.2) mg/dL Albumin 4.7 3.9 3.7 (3.5-5.0) g/dL Pituitary panel 12/31/21 12/31/21 01/01/22 Range/Units 14:03 15:39 06:27 Sodium 137 138 139 (137-145) mmol/L Potassium 4.1 3.9 4.6 (3.5-5.1) mmol/L Chloride 106 108 H 108 H (98-107) mmol/L Carbon Dioxide 22 21 L 23 (22-30) mmol/L BUN 10 9 8 (7-17) mg/dL Creatinine 0.54 0.53 0.58 (0.52-1.04) mg/dL Glucose 84 80 77 (74-99) mg/dL Calcium 8.6 8.1 L 7.9 L (8.4-10.2) mg/dL Adrenal panel 12/31/21 12/31/21 01/01/22 Range/Units 14:03 15:39 06:27 Sodium 137 138 139 (137-145) mmol/L Potassium 4.1 3.9 4.6 (3.5-5.1) mmol/L Chloride 106 108 H 108 H (98-107) mmol/L Carbon Dioxide 22 21 L 23 (22-30) mmol/L BUN 10 9 8 (7-17) mg/dL Creatinine 0.54 0.53 0.58 (0.52-1.04) mg/dL Glucose 84 80 77 (74-99) mg/dL Calcium 8.6 8.1 L 7.9 L (8.4-10.2) mg/dL Total Bilirubin 2.6 H 2.0 H 3.0 H (0.2-1.3) mg/dL AST 32 18 16 (14-36) U/L ALT 19 16 15 (4-34) U/L Alkaline Phosphatase 32 L 27 L 24 L (38-126) U/L Total Protein 7.4 6.2 L 5.9 L (6.3-8.2) g/dL Albumin 4.7 3.9 3.7 (3.5-5.0) g/dL
--- NOTE | 2022-01-01 14:53 | MR ---
MR MRCP INDICATION: Patient age:Female; 26 years old; Reason for study: Choledocholithiasis; COMPARISON: Ultrasound 12/28/2021. TECHNIQUE: Multi planar, T2-weighted imaging with and without fat saturation and chemical shift imag ing was performed of the abdomen. Then, heavily T2 weighted imaging (half-Fourier acquisition single- shot turbo spin-echo) was utilized in order to study the biliary system. Maximum intensity projectio n images were reconstructed from the original data of the biliary tree. No Gadolinium given. FINDINGS: MRCP: The intrahepatic ducts have a normal appearance. The common bile duct at the level of the marie creatic head measures 6 mm in size. The common hepatic duct measures 3 mm in size. The pancreatic du ct is normal. The gallbladder has frontally thickened ramachandran measuring up to 5 mm with suggestion of pericholecystic fluid. There is somewhat curvilinear debris along the ramachandran of the gallbladder with layering low sig nal and a gallstone present. Signal dropout of the liver parenchyma on in phase chemical shift imaging. Abdomen: The spleen, adrenal glands, kidneys, and pancreas have a normal noncontrast appearance. IMPRESSION: 1. Nonspecific gallbladder wall thickening in the setting of biliary sludge and cholelithiasis could represent early acute cholecystitis. Correlation with signs and symptoms of acute cholecystitis and a nuclear medicine HIDA scan is recommended. 2. No evidence to suggest ductal stricture , choledocholithiasis or biliary ductal dilatation. 3. Iron deposition within the liver.
[2022-01-01 15:38] VITALS: BP 101/61; PULSE 78; TEMP 98.1
--- NOTE | 2022-01-01 18:20 | P.DS ---
Providers Date of admission: 12/31/21 16:16 Expected date of discharge: 01/01/22 Attending physician: Salina Bernard Consults: 12/31/21 16:14 Consult Physician Routine Consulting Provider: [facility] Consult Reason/Comments: [facility] Do you want consulting provider notified?: Yes Primary care physician: Stated None Hospital Course: Patient admitted for symptomatic gallstones. She had elevated total bilirubin. MRCP negative for choledocholithiasis. Patient reports abdominal pain moderate improved. She was eager to go home. Outpatient cholecystectomy described. Low-fat diet in the interim reviewed. Family at bedside for translation. Plan - Discharge Summary Discharge Rx Participant: No New Discharge Prescriptions: New Simethicone [Gas-X] 125 mg PO AC-TID PRN #20 capsule PRN Reason: Pain Ibuprofen [Motrin] 600 mg PO Q8HR PRN #30 tab PRN Reason: Pain Acetaminophen Tab [Tylenol Tab] 1,000 mg PO Q6HR PRN #30 tablet PRN Reason: Pain Discharge Medication List Acetaminophen Tab [Tylenol Tab] 1,000 mg PO Q6HR PRN #30 tablet 01/01/22 [Rx] Ibuprofen [Motrin] 600 mg PO Q8HR PRN #30 tab 01/01/22 [Rx] Simethicone [Gas-X] 125 mg PO AC-TID PRN #20 capsule 01/01/22 [Rx] Follow up Appointment(s)/Referral(s): None,Stated [Primary Care Provider] - 1-2 days Salina Bernard MD [STAFF PHYSICIAN] - 01/16/22 Patient Instructions/Handouts: Gallstones (IP), Low Fat Diet (DC), Mediterranean Diet (GEN) Activity/Diet/Wound Care/Special Instructions: Avoid fatty greasy foods. Please notify our office for recurrent symptoms Discharge Disposition: HOME SELF-CARE
--- NOTE | 2022-01-02 15:29 | P.PN ---
Progress Note - Text Progress Note Date: 01/02/22 Contacted patient at home. Spoke to and reports she is doing well. Family advised to return to hospital if any further issues. At this time, family wished to wait.
== END 2022-01-01 18:43 | disposition home or self-care (01) ==
LOC: EC 12:52 → 6NMEDSUR 16:16 → 4SSUR 17:26
PROVIDERS: ADMIT Surgery Plastic and Reconstructive Surgery; ATTEND Surgery Plastic and Reconstructive Surgery
DX: K80.20 Calculus of gallbladder without cholecystitis without obstruction (principal)
CPT/HCPCS: 96361 ×3; 96365; 96366; 96375 ×2; 99285; 36415; 80053 ×2; 82150; 82248; 83605; 83690; 85025 ×2; 81025; 71046; 76705; 74181; G0378 ×3; J2543; J2060; J1885; C9113

== ENCOUNTER 2022-06-01 08:01 | Day surgery (SDC) | payer OTHER ==
[2022-05-30 12:45] VITALS: BMI 19.5
--- NOTE | 2022-06-01 07:00 | P.GSHP ---
History of Present Illness H&P Date: 06/01/22 CHIEF COMPLAINT: Cholecystitis HISTORY OF PRESENT ILLNESS: The patient is a 26-year-old female who presents with history of epigastric including right upper quadrant abdominal pain. She underwent diagnostic studies for her gallbladder. Separately her clinical picture was consistent with cholecystitis. Now she presents for surgical intervention. PAST MEDICAL HISTORY: Please see list PAST SURGICAL HISTORY: Please see list MEDICATIONS: Please see list ALLERGIES: Please see list SOCIAL HISTORY: Please see list FAMILY HISTORY: Please see list REVIEW OF ORGAN SYSTEMS: CONSTITUTIONAL: No reports of fevers or chills. HEENT: Denies any troubles with the vision or hearing. ENDOCRINE: No reports of hypothyroidism. No diabetes. RESPIRATORY: No recent pneumonias. CARDIOVASCULAR: Denies chest pain or palpitations GI: No blood in stools or constipation. MUSCULOSKELETAL: Has occasional joint pain including back pain. NEURO: No seizure disorders or headaches. No recent stroke. PSYCH: No depression or suicidal ideation. GENITOURINARY: No active blood in urine. No urinary hesitancy. HEMATOLOGIC: No personal or family history of DVTs or pulmonary emboli. SKIN: No skin cancer. PHYSICAL EXAM: VITAL SIGNS: Afebrile vital signs stable GENERAL: Well-developed pleasant in no acute distress. HEENT: No scleral icterus. Extraocular movements grossly intact. Moist buccal mucosa. NECK: Supple without lymphadenopathy. CHEST: Unlabored respirations. Equal bilateral excursions. CARDIOVASCULAR: Regular rate regular rhythm rhythm. Distal 2+ pulses. ABDOMEN: Soft, nondistended. Tender along the epigastrium and right upper quadrant. MUSCULOSKELETAL: No clubbing, cyanosis, or edema. NEURO: Cranial nerves II to XII within normal limits. No focal or lateralizing signs. PSYCH: Alert and oriented to person, place and time. SKIN: Well-perfused good skin turgor. ASSESSMENT: 1. Epigastric and right upper quadrant abdominal pain 2. Chronic cholecystitis 3. Symptomatic gallstones. PLAN: 1. Will need a robotic cholecystectomy possible open. Benefits and risks were described. 2. Heparin for DVT prophylaxis 5000 units. 3. Antibiotic prophylaxis. 4. CBC and CMP on day of procedure 5. Non-narcotic pre and post op pain management reviewed. 6. Indocyanine green for biliary imaging. Past Medical History Past Medical History: No Reported History Additional Past Medical History / Comment(s): GALLBLADDER DISORDER. History of Any Multi-Drug Resistant Organisms: None Reported Past Surgical History: No Surgical Hx Reported Past Anesthesia/Blood Transfusion Reactions: No Reported Reaction Additional Past Anesthesia/Blood Transfusion Reaction / Comment(s): Patient has never had anesthesia. Past Psychological History: No Psychological Hx Reported Smoking Status: Never smoker Past Alcohol Use History: None Reported Past Drug Use History: None Reported - Past Family History Father Family Medical History: No Reported History Mother Family Medical History: No Reported History Medications and Allergies Home Medications Medication Instructions Recorded Confirmed Type Control Pill 1 tab PO QAM 05/30/22 05/30/22 History Allergies Allergy/AdvReac Type Severity Reaction Status Date / Time No Known Allergies Allergy Verified 05/30/22 12:33
[~2022-06-01 08:01] MED LIST: ACETAMINOPHEN TAB 500 MG TAB PO STA; DEXAMETHASONE SOD PHOSPHATE 4 MG/ML 1 ML VIAL IV ONE; HEPARIN SODIUM,PORCINE/PF 5,000 UNIT/0.5 ML SYRINGE SQ PRN; HYDROmorphone 0.5 MG/0.5 ML SYRINGE IVP PRN; INDOCYANINE GREEN 25 MG VIAL IV STA; LACTATED RINGERS 1,000 ML IV SCH; LIDOCAINE 1% (10MG/ML) FOR IV START INTRADERMA PRN; MIDAZOLAM 2 MG/2 ML VIAL IV PRN; ONDANSETRON 4 MG/2 ML VIAL IVP ONE; SCOPOLAMINE 1 MG/72 HR PATCH TRANSDERM STA
[2022-06-01 09:05] LABS: Basophils % (A) 0 %; Eosinophils % (A) 1 %; HCT 39.3 % (34.0-46.0); HGB 13.7 gm/dL (11.4-16.0); Lymphocytes # (A) 1.2 k/uL (1.0-4.8); Lymphocytes % (A) 18 %; MCH 30.7 pg (25.0-35.0); MCHC 34.8 g/dL (31.0-37.0); MCV 88.3 fL (80.0-100.0); Mean Platelet Volume 7.3; Monocytes # (A) 0.3 k/uL (0-1.0); Monocytes % (A) 4 %; Neutrophils % (A) 76 %; Platelet Count 318 k/uL (150-450); RBC 4.45 m/uL (3.80-5.40); RDW 12.4 % (11.5-15.5); WBC 6.6 k/uL (3.8-10.6)
[2022-06-01 09:18] LABS: ALT 23 U/L (4-34); AST 20 U/L (14-36); African American GFR (CKD) >90 (>60 ml/min/1.73 sqM); Albumin 4.3 g/dL (3.5-5.0); Alkaline Phosphatase 39 U/L (38-126); Anion Gap 6 mmol/L; Blood Urea Nitrogen 13 mg/dL (7-17); Calcium 8.7 mg/dL (8.4-10.2); Carbon Dioxide 23 mmol/L (22-30); Chloride 108 mmol/L (98-107); Glucose 87 mg/dL (74-99); Non-African American GFR(CKD) >90 (>60 ml/min/1.73 sqM); Potassium 4.1 mmol/L (3.5-5.1); Sodium 137 mmol/L (137-145); Total Protein 7.4 g/dL (6.3-8.2)
[2022-06-01] MEDS ORDERED: MIDAZOLAM 2 MG/2 ML VIAL ONE (10:31)
[2022-06-01] MEDS ORDERED: INDOCYANINE GREEN 25 MG VIAL IV ONE (10:31)
[2022-06-01] MEDS ORDERED: LIDOCAINE 2% INJ 20 MG/ML (2 ML VIAL) ONE (10:31)
[2022-06-01] MEDS ORDERED: fentaNYL (PF) 50 MCG/ML 2 ML AMP ONE (10:31)
[2022-06-01] MEDS ORDERED: NEOSTIGMINE 1 MG/ML 10 ML VIAL ONE (10:31)
[2022-06-01] MEDS ORDERED: PROPOFOL 10 MG/ML 20 ML VIAL IV ONE (10:31)
[2022-06-01] MEDS ORDERED: GLYCOPYRROLATE 0.2 MG/ML 2 ML VIAL ONE (10:31)
[2022-06-01] MEDS ORDERED: ROCURONIUM 10 MG/ML (5 ML VIAL) IV ONE (10:31)
[2022-06-01] MEDS ORDERED: BUPIVACAIN-EPI 0.25%-1:200,000 30 ML VIAL SQ ONE ×2 (10:56→10:59)
[2022-06-01] MEDS ORDERED: LACTATED RINGERS 1,000 ML IV ONE (11:31)
[2022-06-01 11:53] VITALS: TEMP 97.9
--- NOTE | 2022-06-01 12:00 | P.OP ---
Date of Procedure: 06/01/22 Description of Procedure: SURGEON: SALINA BERNARD MD PREOPERATIVE DIAGNOSES: 1. Symptomatic gallstones 2. Right upper quadrant abdominal pain 3. Hyperbilirubinemia 4. Choledocholithiasis POSTOPERATIVE DIAGNOSES: 1. Symptomatic gallstones with acute cholecystitis due to cystic duct impaction 2. Right upper quadrant abdominal pain 3. Hyperbilirubinemia 4. Choledocholithiasis 5. Chronic cholecystitis 6. Peritoneal adhesions, right upper quadrant OPERATION: Robotic-assisted da Jessi Xi laparoscopic cholecystectomy, multiport with FIREFLY ESTIMATED BLOOD LOSS: 5 L. SPECIMENS REMOVED: Gallbladder. COMPLICATIONS: None. OPERATIVE FINDINGS: 1. Moderate scarring over entire gallbladder with peritoneal adhesions, pericholecystic with features of chronic cholecystitis 2. Common bile duct unremarkable size 3. Hypoplastic gallbladder 4. Gallstone impacted at cystic duct INDICATIONS: The patient is a 26-year-old female who presents with symptomatic gallstones. Robotic assisted laparoscopic approach was described. Benefits and risks of the procedure including but not limited to bleeding, infection, injury to the biliary tree was described. Informed consent was obtained. DESCRIPTION OF PROCEDURE: Patient was brought to the operating room, placed in supine position. After general induction, the abdomen had been prepped and draped in standard sterile fashion. The robotic da Jessi XI system was primed. After a timeout protocol was performed, the patient had been prepped and draped in standard sterile fashion. The patient was injected with indocyanine green. A 5 mm 0 degrees laparoscopic trocar entry was performed along the left upper quadrant. The abdomen insufflated to 15 mmHg pressure which was tolerated well. Diagnostic laparoscopy demonstrated no injury to bowel viscera or mesentery. The liver surface was unremarkable. Next, two 8 mm robotic ports were placed along the right upper abdomen. The camera 8-mm port was maintained along the epigastrium. Another 8 mm port was placed along the left upper abdominal wall after exchanging the 5 mm port. Please note that the ports were placed at least 10 to 15 cm away from the target anatomy of the gallbladder. The robot was docked along the left lateral abdomen. The patient was repositioned in reverse Trendelenburg position. Using a grasper for arm 3, a grasper for arm 4, including hook cautery for arm 1, the robotic system was docked and primed as described. Instruments were interchanged by the real estate executive assistant including hook cautery, Bovie cautery and clip appliers. I had sat at the console. The gallbladder was scarred with peritoneal adhesions. Lysis of adhesions was performed to free the gallbladder from the surrounding tissues. Next attention was brought to the infundibulum and cystic structures. Moderate scarring over entire gallbladder with peritoneal adhesions, pericholecystic with features of chronic cholecystitis. Common bile duct unremarkable size. Hypoplastic gallbladder identified. Gallstone was impacted at cystic duct. The infundibulum and cystic duct were dissected free from surrounding tissues. The cystic duct was isolated. FIREFLY was used to identify the cystic artery and cystic structures. A critical view of safety was obtained. Large PLASTIC clips were used throughout the entire case. Using a clip functional analyst, 3 clips were placed at the junction of the infundibulum and cystic duct. The cystic duct was divided between clips. Next, the cystic artery was similarly clipped and cauterized. Electro-Bovie cautery was used to remove the gallbladder from the hepatic fossa. Hemostasis was checked and found to be adequate. The robot was undocked. I re-scrubbed into the case. Using a 10 mm Endo Catch bag via the left upper quadrant incision, the specimen was removed from the abdominal cavity. All pneumoperitoneum instruments were evacuated from the abdominal cavity. The incisions were reapproximated using 4-0 Monocryl in an interrupted subcuticular fashion. Fascial defects were less than 8 mm in size. Please note along the trocar sites, local anesthetic was placed as a field block prior to insertion of all instruments. Liquid glue was applied to the skin. At the end of the procedure needle, sponge, and instrument count had been verified correct by the surgical instrument repair specialist. The patient was transferred to postanesthesia care unit in stable condition. Intraoperative films were shared with the patient's family. Plan - Discharge Summary Discharge Rx Participant: Yes New Discharge Prescriptions: New Ibuprofen [Motrin] 600 mg PO Q8HR PRN #30 tab PRN Reason: Pain Acetaminophen [Tylenol] 650 mg PO Q4H #30 tab Simethicone [Gas-X] 125 mg PO AC-TID PRN #20 capsule PRN Reason: Pain Continue Control Pill 1 tab PO QAM Discharge Medication List Control Pill 1 tab PO QAM 05/30/22 [History] Acetaminophen [Tylenol] 650 mg PO Q4H #30 tab 03/24/23 [Rx] Ibuprofen [Motrin] 600 mg PO Q8HR PRN #30 tab 06/01/22 [Rx] Simethicone [Gas-X] 125 mg PO AC-TID PRN #20 capsule 06/01/22 [Rx] Follow up Appointment(s)/Referral(s): Salina Bernard MD [STAFF PHYSICIAN] - 06/05/22 ( TELEHEALTH - Dr calls you, please confirm your telephone number Please be advised that the office will be closed temporarily from June 04 to June 25. ) Patient Instructions/Handouts: *Surgery [facility] - Scopalamine Patch Instructions, Low Fat Diet (DC) Activity/Diet/Wound Care/Special Instructions: Recommend low-fat diet for the next 2 days. No lifting over 10 pounds in 2 weeks until June 15. May shower. No bath tub soaks for two weeks until June 15. Diet as tolerated. Use Tylenol, simethicone and ibuprofen or Aleve scheduled for the next 24-48 hours for best pain relief. Use ice along incisions for today to prevent swelling. Discharge Disposition: HOME SELF-CARE
[2022-06-01 13:16] VITALS: RESP 16
[2022-06-01 13:38] VITALS: BP 98/63; PULSE 72
== END 2022-06-01 14:39 | disposition home or self-care (01) ==
LOC: OR 08:01
PROVIDERS: ATTEND Surgery Plastic and Reconstructive Surgery
DX: K80.10 Calculus of gallbladder with chronic cholecystitis without obstruction (principal); K66.0 Peritoneal adhesions (postprocedural) (postinfection); G89.18 Other acute postprocedural pain; Z79.899 Other long term (current) drug therapy
CPT/HCPCS: 88304; 80053; 85025; 47563; J2250; J1100; J2710; J0690; J2405; J3010; J2704; J1644; J2001